=== PATIENT | female | born 1990 | race Caucasian/White ===

== ENCOUNTER → 2017-09-28 | Outpatient (CLI) | payer OTHER ==
[~2017-09-28] MED LIST: OPTIRAY 320 IV PRN; PATIENT'S ALLERGY INFO NEEDS ENTERED SCH
--- NOTE | 2017-09-28 14:24 | DIAGNOSTIC IMAGING REPORT ---
CT SOFT TISSUE NECK WITH CT DOSE: 373.99 mGy.cm CLINICAL HISTORY: NECK MASS TECHNIQUE: Helical images were acquired during intravenous administration of 91 cc of Optiray 320. A dose lowering technique was utilized adhering to the principles of ALARA. COMPARISON STUDY: None. FINDINGS: The visualized portions of the lung apices are unremarkable. There is a 3 cm left lobe thyroid nodule. This accounts for the palpable abnormality. No salivary gland masses are visualized. There are no pathologically enlarged cervical lymph nodes. No necrotic nodes are evident. There are no fluid collections suspicious for abscess. There is no evidence of airway compromise. No mucosal space masses are visualized. IMPRESSION: 1. 3 cm left lobe thyroid nodule. This accounts for the patient's palpable abnormality. Ultrasound follow-up for further characterization should be considered. 2. No evidence of pathologic adenopathy. Electronically signed by: Robel Mendieta M.D. 09/28/2017 2:23 PM Dictated Date/Time: 09/28/2017 2:17 PM
== END | disposition home or self-care (01) ==
LOC: C.CTS 13:47
PROVIDERS: ATTEND Family Medicine
DX: R22.1 Localized swelling, mass and lump, neck (principal); E04.1 Nontoxic single thyroid nodule